=== PATIENT | male | born 1960 | race Native Hawaiian/Other Pacific Islander ===

== ENCOUNTER 2017-05-14 08:57 | Emergency (ER) | payer OTHER ==
[~2017-05-14] VITALS: Ht 154.9 cm; Wt 86.2 kg
[2017-05-14 10:51] LABS: PLATELET COUNT 367 K/uL (142-355)
[2017-05-14 10:57] LABS: POTASSIUM 3.4 mmol/L (3.6-5.2); SODIUM 135 mmol/L (136-145)
[2017-05-14 13:50] VITALS: BP 118/70; TEMP 97.8
== END 2017-05-14 13:50 | disposition home or self-care (01) ==
LOC: ED 08:57
DX: F41.8 Other specified anxiety disorders (principal); F32.89 Other specified depressive episodes; B37.0 Candidal stomatitis; R04.0 Epistaxis
CPT/HCPCS: 36415; 80053; 80307; 81000; 82150; 83690; 85027; 96365; 96366; 96374; 99284; J2060

== ENCOUNTER 2017-11-11 04:46 | Outpatient (CLI) | payer OTHER | END 2017-11-11 04:50 | disposition short-term general hospital (02) | LOC: AMB 04:46 | DX: F10.129 Alcohol abuse with intoxication, unspecified (principal) | CPT/HCPCS: A0425; A0429 ==

== ENCOUNTER 2017-11-11 04:56 | Emergency (ER) | payer OTHER ==
[~2017-11-11] VITALS: Ht 152.4 cm; Wt 81.6 kg
[2017-11-11 04:56] VITALS: TEMP 99
[2017-11-11 13:31] VITALS: BP 108/64
== END 2017-11-11 13:32 | disposition home or self-care (01) ==
LOC: ED 04:56
DX: F15.10 Other stimulant abuse, uncomplicated (principal)
CPT/HCPCS: 96360; 96374; 99284; J2060

== ENCOUNTER 2018-12-03 17:32 | Outpatient (CLI) | payer OTHER | END 2018-12-03 17:36 | disposition short-term general hospital (02) | LOC: AMB 17:32 | DX: R41.82 Altered mental status, unspecified (principal); F14.10 Cocaine abuse, uncomplicated; F11.10 Opioid abuse, uncomplicated; G89.29 Other chronic pain | CPT/HCPCS: A0425; A0427 ==

== ENCOUNTER 2018-12-03 17:40 | Emergency (ER) | payer OTHER ==
[~2018-12-03] VITALS: Ht 180.3 cm; Wt 81.6 kg
[2018-12-03 17:51] VITALS: BP 171/105; TEMP 97.9
[2018-12-03 18:03] LABS: PLATELET COUNT 218 K/uL (142-355)
[2018-12-03 18:25] LABS: POTASSIUM 3.5 mmol/L (3.6-5.2); SODIUM 136 mmol/L (136-145)
== END 2018-12-03 18:36 | disposition left against medical advice (07) ==
LOC: ED 17:40
PROVIDERS: Emergency Medicine
DX: F14.10 Cocaine abuse, uncomplicated (principal); F11.10 Opioid abuse, uncomplicated; R40.4 Transient alteration of awareness; I45.81 Long QT syndrome
CPT/HCPCS: 80053; 83690; 83735; 83880; 84484; 85027; 93005; 99283; J2310

== ENCOUNTER 2021-02-13 00:46 | Emergency (ER) | payer OTHER ==
[~2021-02-13] VITALS: Ht 180.3 cm; Wt 81.6 kg
[2021-02-13 01:49] LABS: PLATELET COUNT 324 K/uL (142-355)
[2021-02-13 01:50] VITALS: BP 141/92; TEMP 97.3
[2021-02-13 01:55] LABS: POTASSIUM 3.3 mmol/L (3.6-5.2)
== END 2021-02-13 02:00 | disposition home or self-care (01) ==
LOC: ED 00:46
PROVIDERS: Emergency Medicine Emergency Medical Services
DX: R55 Syncope and collapse (principal); S09.8XXA Other specified injuries of head, initial encounter; W18.39XA Other fall on same level, initial encounter; Y92.89 Other specified places as the place of occurrence of the external cause; Z53.29 Procedure and treatment not carried out because of patient's decision for other reasons
CPT/HCPCS: 36415; 80053; 83735; 84484; 85027; 93005; 96360; 96361; 99284

== ENCOUNTER 2022-03-27 19:50 | Emergency (ER) | payer OTHER ==
[~2022-03-27] VITALS: Ht 180.3 cm; Wt 81.6 kg
[2022-03-27 19:50] VITALS: TEMP 97.8
[2022-03-27 20:18] LABS: PLATELET COUNT 275 K/uL (142-355)
[2022-03-27 20:31] LABS: POTASSIUM 4.5 mmol/L (3.6-5.2)
[2022-03-27 23:31] VITALS: BP 150/69
== END 2022-03-27 23:45 | disposition left against medical advice (07) ==
LOC: ED 19:50
PROVIDERS: Internal Medicine
DX: R41.82 Altered mental status, unspecified (principal); G93.89 Other specified disorders of brain
CPT/HCPCS: 36415; 80053; 80307; 81002; 85027; 96374; 96375; 99284; J1100; J2310

== ENCOUNTER 2022-04-14 14:25 | Emergency (ER) | payer OTHER ==
[~2022-04-14] VITALS: Ht 180.3 cm; Wt 77.1 kg
[2022-04-14 15:23] LABS: PLATELET COUNT 257 K/uL (142-355)
[2022-04-14 15:59] LABS: PARTIAL THROMBOPLASTIN TIME 28.7 SECONDS (24.5-33.6)
[2022-04-14 16:03] LABS: POTASSIUM 4.3 mmol/L (3.6-5.2); SODIUM 134 mmol/L (136-145)
[2022-04-14 21:45] VITALS: BP 107/55; TEMP 97.7
== END 2022-04-14 21:45 | disposition short-term general hospital (02) ==
LOC: ED 14:25
PROVIDERS: Emergency Medicine
DX: D49.6 Neoplasm of unspecified behavior of brain (principal)
CPT/HCPCS: 80053; 80307; 81002; 84484; 85027; 85379; 85610; 85730; 93005; 99283

== ENCOUNTER 2022-07-22 10:52 | Outpatient (CLI) | payer OTHER | END 2022-07-22 22:58 | disposition home or self-care (01) | LOC: CT 10:52 | PROVIDERS: ATTEND Nurse Practitioner | DX: R51.9 Headache, unspecified (principal) ==